=== PATIENT | female | born 1985 | race Two or more races ===

== ENCOUNTER 2021-12-06 09:31 | Outpatient (REF) | payer BC, SELFPAY ==
--- NOTE | 2021-12-06 | EMG_ITS ---
Bilateral median and ulnar motor and sensory studies were performed, bilateral radial and sensory studies were performed, and EMG study was performed. IMPRESSION: 1. Moderately severe chronic left ulnar neuropathy. 2. Mild right median neuropathy across carpal tunnel. 3. Mild right ulnar neuropathy across cubital tunnel. MD JEIMY Dumont/SUZIEL / [id number]
== END 2021-12-06 09:32 | disposition home or self-care (01) ==
LOC: HO.NEURO 09:31
PROVIDERS: PCP Internal Medicine; Visit Provider Internal Medicine
DX: G56.03 Carpal tunnel syndrome, bilateral upper limbs (principal)
CPT/HCPCS: 95886; 95911

== ENCOUNTER 2023-08-04 09:38 | Outpatient (AMB) | payer OTHER, SELFPAY ==
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
[2023-08-04 09:44] VITALS: BP 122/68; PULSE 72; BMI 27.6
== END 2023-08-04 10:26 | disposition home or self-care (01) ==
PROVIDERS: PCP Internal Medicine; Referring Provider Internal Medicine; Visit Provider Surgery
DX: S30.0XXA Contusion of lower back and pelvis, initial encounter (principal)
CPT/HCPCS: 99204

== ENCOUNTER → 2023-08-04 09:38 | Outpatient (BNVA) | payer BC, SELFPAY | PROVIDERS: PCP Internal Medicine; Referring Provider Internal Medicine; Visit Provider Surgery | DX: S30.0XXA Contusion of lower back and pelvis, initial encounter (principal) | CPT/HCPCS: 99202 ==

== ENCOUNTER 2023-09-08 09:46 | Outpatient (AMB) | payer BC, SELFPAY ==
[2023-09-08 09:56] VITALS: BP 140/90; PULSE 102; BMI 27.1
--- NOTE | 2023-09-08 09:56 | A.OFFVIS_ITS ---
Vital Signs 09/08/23 09:56 Height 5 ft 8 in Weight 178 lb BMI 27.1 BP 140/90 H Blood Pressure Location Rt brachial Position Sitting Pulse 102 H Intake Visit Reasons: hematoma evacuation Intake Note: Patient here for 1m f/u hematoma on Lt buttock. Reports slow improvement. Patient c/o: site on lt buttock feels like is turning into a large scar. Pain after standing for long periods of time specially at work. Solar Resource Assessor Required: Yes Solar Resource Assessor Name: Tiffany BREAUX Accompanied by: Self / Same As Patient Allergies No Known Allergies Allergy (Verified 09/08/23 09:58) HPI Comments Details: Patient presents for follow-up status post left buttock hematoma from work- related injury. The process has markedly decreased in size but is occasionally symptomatic colon to the patient with strenuous activities. PFSH Family History Mother Diabetes HTN (hypertension) Social History Current occupational status: employed Current occupation: rt hand / caseworker intake Physical Exam Vital Signs: Last Vital Signs Pulse 102 H 09/08/23 09:56 BP 140/90 H 09/08/23 09:56 BMI result Body Mass Index 27.1 Back/Spine/Pelvis Other: . Complete resolution of ecchymosis. No obvious hematoma palpated anymore.. Assessment & Plan Assessment & Plan (1) Traumatic hematoma of buttock: Code(s): S30.0XXA - Contusion of lower back and pelvis, initial encounter Category: Surgical Plan Patient was reassured that the process is self-resolving and can resume all her prior activities. Although possible, patient is highly unlikely to have any long-term sequelae results from the arrange hematoma process. All questions answered. Patient will follow-up p.r.n.. Coding Level of Care Code Est Pt Level 4 (42233) Diagnoses Traumatic hematoma of buttock S30.0XXA
== END 2023-09-08 10:19 | disposition home or self-care (01) ==
PROVIDERS: PCP Internal Medicine; Visit Provider Surgery
DX: S30.0XXA Contusion of lower back and pelvis, initial encounter (principal)
CPT/HCPCS: 99214

== ENCOUNTER → 2023-09-08 09:46 | Outpatient (BNVA) | payer OTHER, BC, SELFPAY | PROVIDERS: PCP Internal Medicine; Visit Provider Surgery | DX: S30.0XXD Contusion of lower back and pelvis, subsequent encounter (principal) | CPT/HCPCS: 99212 ==

== ENCOUNTER 2024-02-26 14:37 | Emergency (ER) | payer BC, SELFPAY ==
--- NOTE | ~2024-02-26 | XR_ITS ---
EXAMINATION: XR CHEST 2 VIEW CLINICAL INFORMATION: Pain COMPARISON: None TECHNIQUE: PA and lateral views of the chest obtained. FINDINGS: The lungs are clear. There are no pleural effusions. The cardiomediastinal silhouette is normal. XR/XR chest 2V IMPRESSION: No acute cardiopulmonary disease. Electronically signed by: David Bass MD 02/26/2024 04:00 PM EDT
[2024-02-26 14:56] VITALS: BP 123/84; PULSE 81; RESP 16; TEMP 36.1; O2SAT 99; BMI 25.1
--- NOTE | 2024-02-26 15:10 | ED_ITS ---
HPI - General Adult General Chief complaint: General Medical Stated complaint: Headache, fever, vomiting Time Seen by Provider: 02/26/24 17:01 Source: patient and crew caller Mode of arrival: ambulatory Limitations: language barrier History of Present Illness ED Provider: adrienne RIOS narrative: Patient is a 38-year-old Georgian-speaking female presenting to the emergency department with complaint of headache, chills, nausea, vomiting, diarrhea since yesterday. States that she felt fine yesterday morning and symptoms began while she is at work. States this morning felt as though symptoms were improved but when she returned to work symptoms began again. Has been unable to tolerate any fluids by mouth today. Denies any family members at home with similar symptoms. Does not attribute to any foods she ate prior to onset of symptoms. Denies any hematochezia, melena, hematemesis. Denies abdominal pain. MD complaint: nausea, vomiting, diarrhea Onset (ago): day(s) Treatments prior to arrival: none Related Data Home Medications ?Medication ?Instructions ?Recorded ?Confirmed albuterol sulfate 90 mcg/actuation inhalation 09/08/23 aerosol inhaler Previous Rx's ?Medication ?Instructions ?Recorded ondansetron 4 mg disintegrating 4 mg PO Q8H PRN nausea and 02/26/24 tablet vomiting #10 tabs Allergies Allergy/AdvReac Type Severity Reaction Status Date / Time No Known Allergies Allergy Verified 02/26/24 14:57 Review of Systems 2 Review of Systems: As per HPI. Yes all other systems are reviewed and are negative Constitutional: Constitutional: Reports as per HPI [facility] Family History Family History Mother Diabetes HTN (hypertension) Social History Social History Advance Directives: No Advance Directives Information Provided: No Current occupational status: employed Current occupation: rt hand / warehouse loader Physical Exam ED Vital Signs: Vital Signs - 24 hr 02/26/24 14:56 02/26/24 17:01 Temperature 97.0 F 97.8 F Pulse Rate 81 80 Respiratory Rate 16 16 Blood Pressure 123/84 133/86 Pulse Oximetry 99 100 Oxygen Delivery Method Room Air BMI result Body Mass Index 25.1 Vital signs have been reviewed and appear to be correct. Blood pressure normal. Heart rate normal. Respiratory rate normal. Temperature normal. Oxygen saturation normal. Const General: cooperative, healthy appearing and no acute distress Orientation/consciousness: oriented to person, oriented to place, oriented to time and patient oriented x3 Limitations: no limitations HENMT Head: Yes normocephalic and Yes atraumatic Ears: external ears normal General nose exam: Normal external nose present Face and sinus: Yes face symmetric Mouth: oropharynx normal and moist mucous membranes Throat: Yes uvula midline Eyes Pupils: Equal, round and reactive pupils present Neck Neck: Yes normal visual inspection and Yes supple Resp Effort & Inspection: normal respiratory effort and able to speak in complete sentences Auscultation: clear to auscultation bilaterally Cardio Rate: regular rate Rhythm: regular rhythm Heart sounds: S1 normal heart sound present and S2 normal heart sound present GI Palpation (GI): Soft to palpation and nontender Auscultation: normoactive bowel sounds General: Yes no CVA tenderness Back/Spine/Pelvis Back: no CVA tenderness Skin General skin exam: elasticity normal and turgor normal Neuro General: oriented to person, oriented to place, oriented to time, patient oriented x3, moves all extremities, no focal motor deficits and CN's II-XI intact bilaterally Cranial nerves: Yes Equal, round and reactive pupils present Cognition (Neuro): normal cognition Extrem General: Yes full ROM, Yes no pedal edema and Yes no calf tenderness Psych Mental Status: mental status grossly normal Affect: normal affect Thought process: Normal thought process present Course Course Course Narrative: RME, this is a rapid medical exam performed by Dipak Biggs please refer to primary provider for complete H&P- 38-year-old female presents for evaluation of nausea vomiting, weakness starting yesterday. She also complains of headache. Denies any fevers, chills. Plan for labs, viral swabs chest x-ray. Medications Administered Discontinued Medications Generic Name Dose Route Start Last Admin Trade Name Freq PRN Reason Stop Dose Admin Ondansetron HCl 4 mg 02/26/24 17:56 02/26/24 18:05 Ondansetron Odt 4 Mg Tab.Indu HOLLISU 02/26/24 17:57 4 mg ONCE ONE Administration Medical Decision Making Medical Decision Making MDM Narrative: Patient is a 38-year-old Georgian-speaking female presenting to the emergency department with complaint of headache, chills, nausea, vomiting, diarrhea since yesterday. On exam patient is awake, A+Ox3, VS WNL, afebrile, normal neurological exam without focal deficits, physical exam findings as above. Given reported symptoms and physical exam findings, initial differential includes viral illness, COVID, flu, gastroenteritis. Labs unremarkable. Viral serology negative. Urinalysis is without evidence of infection. X-ray chest notable for no evidence of pneumonia. My interpretation is in agreement with the radiologist's interpretation. Nausea improved with medication and patient able to tolerate PO fluids in the ED. Feel patient is stable for discharge home. Will send prescription for Zofran to the pharmacy. Return precautions discussed at bedside. Patient verbalized understanding of and agreement with plan. Differential Diagnosis Differential Diagnoses: The differential diagnosis associated with the presentation includes As per [facility]. Admission/Observation Consideration of admission/observation: Escalation of care including admission/observation considered Patient would have been admitted to the hospital had their work up had any findings where hospital admission was appropriate and their clinical presentation warranted hospital admission. Lab Data [facility] Lab Attestation statement: I reviewed the patient's lab results. as per [facility] 02/26/24 15:31 02/26/24 15:31 Labs: Lab Results 02/26/24 02/26/24 Range/Units 15:31 15:36 WBC 8.4 (4.8-10.8) X10*3/uL RBC 4.26 (4.20-5.50) X10*6/uL Hgb 12.4 (12.0-16.0) g/dl Hct 37.8 (37.0-47.0) % MCV 88.7 (80.0-98.0) fL MCH 29.1 (27.0-33.0) pg MCHC 32.8 (31.0-35.0) g/dl RDW 15.3 (11.0-16.0) % Plt Count 319 (160-400) X10*3/uL MPV 9.6 (9.4-12.3) fL Immature Gran % (Auto) 0.5 H (0.0-0.4) % Neut % (Auto) 67.9 (45-73) % Lymph % (Auto) 21.8 (20-40) % [place] % (Auto) 7.5 (2-11) % Eos % (Auto) 1.9 (0-4) % Baso % (Auto) 0.4 (0-2) % Lymph # (Auto) 1.8 (1.2-4.9) X10*3/uL [place] # (Auto) 0.6 (0.1-1.2) X10*3/uL Eos # (Auto) 0.2 (0.0-0.4) X10*3/uL Baso # (Auto) 0.0 (0.0-0.2) X10*3/uL Abs Immat Gran (auto) 0.04 H (0.00-0.03) X10*3/uL Absolute Neuts (auto) 5.7 (2.0-8.3) x10*3/uL Absolute Nucleated RBC 0.000 (0.0-0.012) X10*3/uL Nucleated RBC % (auto) 0.0 (0.0-0.2) /100WBC Sodium 139 (135-145) mmol/L Potassium 4.2 (3.3-5.1) mmol/L Chloride 106 (96-108) mmol/L Carbon Dioxide 27 (22-29) mmol/L Anion Gap 10 L (12-20) BUN 10 (9-16) mg/dL Creatinine 0.89 (0.5-1.4) mg/dL Estim Creat Clear Calc 86.4 Estimated GFR > 60 Random Glucose 115 (60-115) mg/dL Calcium 9.4 (8.4-10.2) mg/dL Total Bilirubin 0.4 (0.0-1.0) mg/dL AST 17 (5-31) U/L ALT 11 (0-31) U/L Alkaline Phosphatase 46 (39-117) U/L Total Protein 6.9 (6.5-8.0) g/dL Albumin 4.0 (3.5-5.0) g/dL Lipase 14 (8-78) U/L Beta HCG, Quant < 2 mIU/mL Urine Color Yellow Urine Appearance Turbid Urine pH 8.5 (5.0-9.0) Ur Specific [place] 1.020 (1.005-1.025) Urine Protein Negative (Neg-Trace) mg/dL Urine Glucose (UA) Negative (Negative) mg/dL Urine Ketones Negative (Negative) mg/dL Urine Blood Negative (Negative) Urine Nitrite Negative (Negative) Ur Leukocyte Esterase Small (1+) H (Negative) Urine RBC 0-2 (0-2) /HPF Urine WBC 0-5 (0-5) /HPF Ur Squamous Epith Cells 3-5 (0-2) /HPF Other Crystals Present Urine Bacteria Trace (None Seen) Hyaline Casts 0-2 (0-2) /LPF Influenza Type A (PCR) NEGATIVE (Negative) Influenza Type B (PCR) NEGATIVE (Negative) RSV RNA Qual (PCR) NEGATIVE (Negative) SARS-CoV-2 RNA (RT-PCR) NEGATIVE (Negative) Independent Interpretation I performed an independent interpretation of an: Plain X-Ray Interpretation: Chest x-rays without evidence of pneumonia Radiology Impression Discussion of test interpretation with radiology: I have reviewed the radiologist's reading. Radiologist Impression: XR/XR chest 2V IMPRESSION: No acute cardiopulmonary disease. External Record Review External record reviewed: Inpatient record, Office record and Outpatient record Prescription Management I considered prescription management with: Other Discharge Plan Discharge Clinical Impression: Nausea, vomiting, and diarrhea Patient Disposition: Home, Self-Care Instructions: Gastroenteritis (DC), Acute Nausea and Vomiting (ED), Acute Diarrhea (ED) Additional Instructions: You have been evaluated in the emergency department today for nausea, vomiting, and diarrhea. Your evaluation suggests that your symptoms are most likely due to a viral illness which will improve on it's own with rest and fluids. Remember to drink plenty of fluids at home. You are being prescribed ondansetron which you can use as per the prescription instructions for nausea. Please follow up with your primary care provider within two days. Return to the emergency department if you experience worsening or uncontrolled pain, inability to tolerate fluids by mouth, difficulty breathing, fevers 100.4? F or greater, recurrent vomiting, or any other concerning symptoms. Prescriptions: New ondansetron 4 mg tablet,disintegrating 4 mg PO Q8H PRN (Reason: nausea and vomiting) Qty: 10 0RF No Action albuterol sulfate 90 mcg/actuation HFA aerosol inhaler inhalation Stand Alone Forms: Work/School Release Print Language: Georgian
[2024-02-26 15:38] LABS: Basophils Percent Auto 0.4 % (0-2); Eosinophils Absolute Auto 0.2 X10*3/uL (0.0-0.4); Eosinophils Percent Auto 1.9 % (0-4); Hematocrit 37.8 % (37.0-47.0); Hemoglobin 12.4 g/dl (12.0-16.0); Imm Gran Abs Auto 0.04 X10*3/uL (0.00-0.03); Imm Gran Pct Auto 0.5 % (0.0-0.4); Lymphocytes Absolute Auto 1.8 X10*3/uL (1.2-4.9); Lymphocytes Percent Auto 21.8 % (20-40); MANUAL DIFF FLAG NO; Mean Corpuscular HGB Conc 32.8 g/dl (31.0-35.0); Mean Corpuscular Hemoglobin 29.1 pg (27.0-33.0); Mean Corpuscular Volume 88.7 fL (80.0-98.0); Mean Platelet Volume 9.6 fL (9.4-12.3); Monocytes Absolute Auto 0.6 X10*3/uL (0.1-1.2); Monocytes Percent Auto 7.5 % (2-11); Neutrophils Absolute Auto 5.7 x10*3/uL (2.0-8.3); Neutrophils Percent Auto 67.9 % (45-73); Platelet Count 319 X10*3/uL (160-400); Red Blood Count 4.26 X10*6/uL (4.20-5.50); Red Cell Distribution Width 15.3 % (11.0-16.0); White Blood Count 8.4 X10*3/uL (4.8-10.8)
[2024-02-26 15:54] LABS: Appearance Urine Turbid; Color Urine Yellow; Glucose Urine UA Negative (Negative); Leukocyte Esterase Urine Small (1+) (Negative); Nitrite Urine Negative (Negative); PH 8.5 (5.0-9.0); UMIC TRIGGER UACC YES; Urine Blood Negative (Negative); Urine Ketones Negative (Negative); Urine Protein Negative (Neg-Trace)
[2024-02-26 16:04] LABS: Bacteria Urine Trace (None Seen); Hyaline Casts Urine 0-2 /LPF (0-2); Other Crystals Urine Present; RBC Urine 0-2 /HPF (0-2); UACC Culture Trigger YES; WBC Urine 0-5 /HPF (0-5)
[2024-02-26 16:06] LABS: Alanine Aminotransferase 11 U/L (0-31); Alkaline Phosphatase 46 U/L (39-117); Anion Gap 10 (12-20); Aspartate Amino Transferase 17 U/L (5-31); Bilirubin Total 0.4 mg/dL (0.0-1.0); Blood Urea Nitrogen 10 mg/dL (9-16); Calcium 9.4 mg/dL (8.4-10.2); Carbon Dioxide 27 mmol/L (22-29); Chloride 106 mmol/L (96-108); Creatinine Clr Calc Pharmacy 86.4; Estimated Glomerular Filt Rate > 60; Glucose Random 115 mg/dL (60-115); Lipase 14 U/L (8-78); Potassium 4.2 mmol/L (3.3-5.1); Sodium 139 mmol/L (135-145); Total Protein 6.9 g/dL (6.5-8.0)
[2024-02-26 16:07] LABS: HCG Quantitative < 2 mIU/mL
[2024-02-26 16:27] LABS: Influenza A PCR NEGATIVE (Negative); Influenza B PCR NEGATIVE (Negative); Resp Syncy Virus RNA Qual PCR NEGATIVE (Negative); SARS COV2 PCR INHOUSE NEGATIVE (Negative)
[2024-02-26 17:01] VITALS: BP 133/86; PULSE 80; RESP 16; TEMP 36.6; O2SAT 100
[2024-02-26] MEDS: Ondansetron ODT 4 MG TAB.RAPDIS TRANSLINGU (18:05)
[2024-02-26 18:50] VITALS: BP 133/86; PULSE 80; RESP 16; TEMP 36.6; O2SAT 100
== END 2024-02-26 18:57 | disposition home or self-care (01) ==
PROVIDERS: Physician Assistant; Emergency Provider Emergency Medicine
DX: R51.9 Headache, unspecified (principal); R50.9 Fever, unspecified; R07.89 Other chest pain; R11.2 Nausea with vomiting, unspecified; R10.2 Pelvic and perineal pain; Z79.899 Other long term (current) drug therapy; Z03.818 Encounter for observation for suspected exposure to other biological agents ruled out
CPT/HCPCS: 0241U; 71046; 80053; 81001; 83690; 84702; 85025; 87086; 99283

== ENCOUNTER 2024-07-20 12:33 | Outpatient (AMB) | payer BC, SELFPAY ==
[2024-07-20 12:35] VITALS: BMI 25.1
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
== END 2024-07-20 13:43 | disposition home or self-care (01) ==
LOC: HO.HOS 12:34
PROVIDERS: Visit Provider Orthopaedic Surgery
DX: G56.01 Carpal tunnel syndrome, right upper limb (principal); G56.21 Lesion of ulnar nerve, right upper limb; S64.02XA Injury of ulnar nerve at wrist and hand level of left arm, initial encounter
CPT/HCPCS: 99214

== ENCOUNTER 2024-08-18 10:58 | Emergency (ER) | payer BC, SELFPAY ==
--- NOTE | ~2024-08-18 | XR_ITS ---
EXAMINATION: XR CHEST CLINICAL INFORMATION: CP, SOB COMPARISON: 02/26/2024. TECHNIQUE: 2 views of the chest were obtained. FINDINGS: The cardiac, hilar, and mediastinal contours are normal. The lungs are clear bilaterally. There is no pneumothorax or pleural effusion. There is no focal osseous or soft tissue abnormality. XR/XR chest 2V IMPRESSION: Normal chest. Electronically signed by: Tony Mazariegos MD 08/18/2024 12:06 PM EDT
[2024-08-18 11:03] VITALS: BP 124/81; PULSE 114; RESP 18; TEMP 37.7; O2SAT 98; BMI 26.2
--- NOTE | 2024-08-18 11:05 | ED_ITS ---
HPI - General Adult General Chief complaint: Upper Respiratory Symptoms Stated complaint: Trouble Breathing, Fever, Cough, Chest Pain Time Seen by Provider: 08/18/24 12:43 Source: patient and japanese interpreter (all interactions with his patient were facilitated with an [facility] healthcare interpreter.) Mode of arrival: ambulatory Limitations: language barrier (all interactions with his patient were facilitated with an [facility] healthcare interpreter.) History of Present Illness ED Provider: Kay Cassidy PA-C HPI narrative: Patient is a 39 year old assigned female at with no reported medical history presenting to the emergency department today with a fever, cough, chest pain with coughing, and a headache. Patient states that over the last day she has had a fever, cough, headache, and chest pain with coughing. Patient denies any dizziness, lightheadedness, abdominal pain, nausea, vomiting, chills, blurry vision, double vision, loss of vision, chest pain, difficulty breathing, shortness of breath, back pain, night sweats, pain with urination, increased urinary frequency, increased urinary urgency, blood in her urine or stool, syncope or a near syncopal episode, recent trauma or falls, bowel incontinence, bladder incontinence, or any other complaints at this time. Onset (ago): day(s) (1) Relieving factors: none Exacerbating factors: none Associated symptoms: chest pain (with coughing), cough and fever/chills Treatments prior to arrival: none Related Data Home Medications ?Medication ?Instructions ?Recorded ?Confirmed albuterol sulfate 90 mcg/actuation inhalation 09/08/23 aerosol inhaler Previous Rx's ?Medication ?Instructions ?Recorded ondansetron 4 mg disintegrating 4 mg PO Q8H PRN nausea and 02/26/24 tablet vomiting #10 tabs oseltamivir 75 mg capsule (Tamiflu) 75 mg PO DAILY 5 days #5 caps 08/18/24 Allergies Allergy/AdvReac Type Severity Reaction Status Date / Time No Known Allergies Allergy Verified 08/18/24 11:06 Review of Systems 2 Constitutional: Constitutional: Reports no additional constitutional complaints, Denies chills, Reports fever(s), Reports headache(s) and Denies night sweats Eyes: Eyes: Reports no additional eye complaints, Denies blurry vision, Denies change in vision, Denies diplopia, Denies eye discharge, Denies loss of vision and Denies eye pain ENT: Denies dizziness and Reports headache(s) Cardiovascular: Cardiovascular: Reports no additional cardiovascular complaints, Reports chest pain (with coughing), Denies lightheadedness, Denies Loss of Consciousness and Denies dyspnea Respiratory: Respiratory: Reports no additional respiratory complaints, Reports cough and Denies dyspnea Gastrointestinal: Gastrointestinal: Reports no additional gastrointestinal complaints, Denies abdominal pain, Denies melena, Denies hematochezia, Denies change in bowel habits and Denies change in stool character Genitourinary: Genitourinary: Denies hematuria, Denies urinary frequency, Denies dysuria, Denies urinary incontinence, Denies urinary hesitancy and Denies urinary urgency Musculoskeletal: Musculoskeletal: Reports no additional musculoskeletal complaints, Denies numbness and Denies tingling Neurologic: Denies dizziness, Reports headache(s), Denies loss of vision, Denies numbness and Denies tingling Psychiatric: Psychiatric: Reports no additional psychiatric complaints Endocrine: Endocrine: Reports no additional endocrine complaints Hematologic/Lymphatic: Hematologic/Lymphatic: Reports no additional hematologic/lymphatic complaints Allergic/Immunologic: Allergic/Immunologic: Reports no additional allergic/immunologic complaints PMFSH Past Medical History Attestation statement: The following information was validated with the patient. Source: old records reviewed and nursing notes reviewed Family History Family History Mother Diabetes HTN (hypertension) Social History Social History Advance Directives: No Advance Directives Information Provided: Yes Current occupational status: employed Current occupation: rt hand / warehouse delivery manager Physical Exam ED Vital Signs: Vital Signs - 24 hr 08/18/24 11:03 08/18/24 13:23 08/18/24 13:53 Temperature 99.9 F Pulse Rate 114 H 88 65 Respiratory Rate 18 22 H 16 Blood Pressure 124/81 107/60 Pulse Oximetry 98 95 Oxygen Delivery Method Room Air Room Air Non-Rebreather Mask 08/18/24 13:56 Temperature 0 F L Pulse Rate 65 Respiratory Rate 16 Blood Pressure 107/60 Pulse Oximetry 95 Oxygen Delivery Method Room Air Non-Rebreather Mask BMI result Body Mass Index 26.2 Const General: cooperative, no acute distress, alert and awake Nutritional Appearance: well nourished Orientation/consciousness: patient oriented x3 Limitations: language barrier (all interactions with [facility] japanese interpreter as noted above.) HENMT Head: Yes normal to inspection and Yes atraumatic Ears: hearing grossly normal bilaterally and external ears normal General nose exam: Normal external nose present, no nasal discharge noted and no epistaxis Face and sinus: Yes normal facial exam, No abrasion and No laceration Mouth: Normal oral and palatal mucosa present, no drooling and no muffled voice Eyes General: appearance normal, both eyes and all related structures Periorbital: periorbital findings normal Eyelids: Yes eyelids normal Conjunctivae: conjunctivae normal Pupils: Equal, round and reactive pupils present EOM: EOMs intact bilaterally Neck Neck: Yes normal visual inspection, Yes full ROM and Yes no lymphadenopathy Chest Chest palpation & inspection: normal inspection of the chest Resp Effort & Inspection: normal respiratory effort and able to speak in complete sentences Auscultation: wheezes scattered wheezes GI Inspection: Yes normal to inspection Neuro General: patient oriented x3, moves all extremities and CN's II-XI intact bilaterally Cranial nerves: Yes Equal, round and reactive pupils present Cognition (Neuro): normal cognition Extrem General: Yes normal to inspection, Yes full ROM and Yes capillary refill normal Psych Appearance: grossly normal Mental Status: mental status grossly normal Affect: normal affect Attitude: cooperative Thought process: Normal thought process present Thought content: Normal thought content present Insight: Good insight present (Psych) Course Course Course Narrative: This is an RME: Additional HPI, ROS, PE not included below will be deferred to primary provider. RME assessment and note performed by: Ami Stewart PA-C This is a 74[place]citizen [place] speaking female, hx of asthma, who presents to the ER with a complaint of cough and fevers since last night. Patient also endorsing nausea and vomiting. No sick contacts. Frequent dry cough heard on exam. Lungs with prolonged expiratory wheeze noted, more pronounced in the bilateral lung bases. She last took Tylenol at 3:00 a.m. this morning. Further ER evaluation needed. Patient tachycardic at 114bpm, speaking in full sentences. Appears to be under no acute respiratory distress. Temperature 99.9F orally. Plan: Tylenol, Zofran Labs, EKG, CXR, viral swabs. Further ER evaluation needed. Medications Administered Discontinued Medications Generic Name Dose Route Start Last Admin Trade Name Freq PRN Reason Stop Dose Admin Acetaminophen 975 mg 08/18/24 11:07 08/18/24 11:10 Acetaminophen 325 Mg Tablet PO 08/18/24 11:08 975 mg ONCE ONE Administration Albuterol Sulfate 5 mg/ 0 mg 08/18/24 13:14 08/18/24 13:19 Albuterol/Ipratropium 3 ml INHALE 08/18/24 13:15 1 each ONCE ONE Administration Methylprednisolone Sodium Succinate 60 mg 08/18/24 12:54 08/18/24 13:11 Methylprednisolone Sod Succ 125 Mg/2 Ml Vial IM 08/18/24 12:55 60 mg ONCE ONE Administration Ondansetron HCl 4 mg 08/18/24 11:08 08/18/24 11:10 Ondansetron Odt 4 Mg Tab.Rapdis TRANSLINGU 08/18/24 11:09 4 mg ONCE ONE Administration Medical Decision Making Medical Decision Making [facility] Narrative: Patient is a 39 year old assigned female at with no reported medical history presenting to the emergency department today with a fever, cough, chest pain with coughing, and a headache. Patient's physical exam was unremarkable. Patient's blood work was unremarkable. Patient's EKG showed sinus tachycardia but otherwise unremarkable. Patient's chest x-ray showed no acute process. Patient's influenza test was positive. I explained my physical exam findings as well as all test results to the patient. I answered all questions asked by the patient. Patient received IM solu-medrol and a breathing treatment while in the department which, upon re-evaluation, she stated it helped her symptoms significantly. I stressed the importance of the patient taking her medication as directed (either prescribed or as the over the counter packaging recommends). I stressed the importance of the patient following up with her primary care provider. I stressed the importance of the patient returning to the emergency department immediately if her symptoms were to worsen or if she were to develop any dizziness, shortness of breath, difficulty breathing, chest pain, blurry vision, loss of vision, nausea, vomiting, abdominal pain, fever, chills, back pain, or any other complaints. Patient verbalized agreement and understanding with this treatment plan and discharge. Differential Diagnosis Differential Diagnoses: The differential diagnosis associated with the presentation includes Cough Fever Headache Viral illness Influenza RSV COVID-19 Admission/Observation Consideration of admission/observation: Escalation of care including admission/observation considered Patient would have been admitted to the hospital had her work up had any findings where hospital admission was appropriate and her clinical presentation warranted hospital admission. Lab Data [facility] Lab Attestation statement: I reviewed the patient's lab results. My interpretation of these results are in the MDM Rationale portion of this note. 08/18/24 11:32 08/18/24 11:32 Labs: Lab Results 08/18/24 Range/Units 11:32 WBC 6.1 (4.8-10.8) X10*3/uL RBC 3.97 L (4.20-5.50) X10*6/uL Hgb 11.4 L (12.0-16.0) g/dl Hct 34.7 L (37.0-47.0) % MCV 87.4 (80.0-98.0) fL MCH 28.7 (27.0-33.0) pg MCHC 32.9 (31.0-35.0) g/dl RDW 15.7 (11.0-16.0) % Plt Count 241 (160-400) X10*3/uL MPV 9.8 (9.4-12.3) fL Immature Gran % (Auto) 0.3 (0.0-0.4) % Neut % (Auto) 77.4 H (45-73) % Lymph % (Auto) 11.5 L (20-40) % [place] % (Auto) 9.5 (2-11) % Eos % (Auto) 0.8 (0-4) % Baso % (Auto) 0.5 (0-2) % Lymph # (Auto) 0.7 L (1.2-4.9) X10*3/uL [place] # (Auto) 0.6 (0.1-1.2) X10*3/uL Eos # (Auto) 0.1 (0.0-0.4) X10*3/uL Baso # (Auto) 0.0 (0.0-0.2) X10*3/uL Abs Immat Gran (auto) 0.02 (0.00-0.03) X10*3/uL Absolute Neuts (auto) 4.7 (2.0-8.3) x10*3/uL Absolute Nucleated RBC 0.000 (0.0-0.012) X10*3/uL Nucleated RBC % (auto) 0.0 (0.0-0.2) /100WBC Sodium 142 (135-145) mmol/L Potassium 4.3 (3.3-5.1) mmol/L Chloride 111 H (96-108) mmol/L Carbon Dioxide 24 (22-29) mmol/L Anion Gap 11 L (12-20) BUN 8 L (9-16) mg/dL Creatinine 0.79 (0.5-1.4) mg/dL Estim Creat Clear Calc 105.0 Estimated GFR > 60 Random Glucose 99 (60-115) mg/dL Calcium 9.0 (8.4-10.2) mg/dL Total Bilirubin 0.2 (0.0-1.0) mg/dL AST 25 (5-31) U/L ALT 15 (0-31) U/L Alkaline Phosphatase 57 (39-117) U/L Troponin I High Sens < 2.7 (<3.5-17.0) ng/L Total Protein 6.8 (6.5-8.0) g/dL Albumin 4.0 (3.5-5.0) g/dL Beta HCG, Quant < 2 mIU/mL Influenza Type A (PCR) POSITIVE A (Negative) Influenza Type B (PCR) NEGATIVE (Negative) RSV RNA Qual (PCR) NEGATIVE (Negative) SARS-CoV-2 RNA (RT-PCR) NEGATIVE (Negative) S. pyogenes GrpA NERISSA Negative (Negative) Independent Interpretation I performed an independent interpretation of an: EKG and Plain X-Ray Interpretation: My interpretation is in agreement with the radiologist's impression of this imaging study. L EXAMINATION: XR CHEST CLINICAL INFORMATION: CP, SOB COMPARISON: 02/26/2024. TECHNIQUE: 2 views of the chest were obtained. FINDINGS: The cardiac, hilar, and mediastinal contours are normal. The lungs are clear bilaterally. There is no pneumothorax or pleural effusion. There is no focal osseous or soft tissue abnormality. XR/XR chest 2V IMPRESSION: Normal chest. Electronically signed by: Tony Mazariegos MD 08/18/2024 12:06 PM EDT Dictated By: Tony Mazariegos MD Signed By: Electronically signed by Tony Mazariegos MD 08/18/24 1206 I independently interpreted this EKG and am in agreement with the below findings: Vent. Rate: 104 BPM Atrial Rate: 104 BPM P-R Int: 130 ms QRS Dur: 80 ms QT Int: 330 ms P-R-T Axes: * 112 -23 degrees QTcB Int: 433 ms Sinus tachycardia Right axis deviation No previous ECGs available DD/ 1121 Radiology Impression Discussion of test interpretation with radiology: I have reviewed the radiologist's reading. Prescription Management I considered prescription management with: Antiviral (patient requested to be prescribed tamiflu) Discharge Plan Discharge Clinical Impression: Influenza Patient Disposition: Home, Self-Care Instructions: Influenza (DC) Additional Instructions: Follow up with your primary care provider. Return to the emergency department immediately if your symptoms worsen or if you develop any dizziness, shortness of breath, difficulty breathing, chest pain, blurry vision, loss of vision, nausea, vomiting, abdominal pain, fever, chills, back pain, or any other complaints. Kassi?seguimiento?con garcia m?dico de atenci?n primaria. Acuda inmediatamente al servicio de urgencias si hector s?ntomas empeoran o si presenta falta de aliento, dificultad para respirar, dolor tor?cico, mareos, aturdimiento, dolor de espalda, dolor abdominal, fiebre, escalofr?os o cualquier otro s?ntoma. Please see the information below about our Patient Portal. If you are not yet enrolled in the [facility] & [facility] Patient Portal, you will receive an enrollment email invitation following your visit to any [facility] care setting. You may also self-enroll in the Patient Portal by visiting our website: [email or web address] The following information is required to access the Patient Portal: - Your [facility] Medical Record Number - Your personal home email address (must match what is in your electronic medical record, Registration staff can assist with this) - Name - Date of Capabilities of the Patient Portal: - Message some providers - View upcoming appointments - Access your health summary, medical history, and visit history - View current conditions and allergies - View procedure and lab results - View your medications, including guidelines, side effects, and precautions - Complete pre-appointment questionnaires requested by your provider - Ready summary reports of your office visits and procedures To access the Patient Portal Mobile Karlie, follow these directions: - Search RUN in the Karlie Store or [employer] Store - Download the Karlie - Search for [facility] - Enter your login/password Portal del paciente Si usted no esta inscrito en el portal de pacientes de [facility] y [facility], recibira sandra invitacion de inscripcion despues de garcia visita al [facility] o al [facility] via correo electronico. Tambien puede inscribirse voluntariamente en el portal de pacientes visitando nuestra pagina web: [email or web address] La siguiente informacion sera requerida para acceder al portal: - Garcia jacinto de historia medica de [facility] - Garcia direccion de correo electronico personal - Nombre - Fecha de nacimiento Capacidades: Las siguientes capacidades estan disponibles en el portal de pacientes: - Enviar mensajes a algunos doctores - Verificar proximas citas - Acceso a garcia historial de magdalena, registro medico e historial de visitas - [place] las condiciones actuales y alergias lima procedimientos y resultados del laboratorio - [place] hector medicamentos, incluyendo las pautas - Efectos secundarios y precauciones - Completar o llenar formularios / cuestionarios de - Citas solicitadas por garcia doctor - Leer los resumenes de reportes medicos de hector visitas y procedimientos [place] acceder a la aplicacion movil: - [email or web address] [facility] en la Karlie Store o [employer] Play Store - Descargue la aplicacion - [facility] - Ingrese garcia nombre de usuario / Contrasena Prescriptions: New oseltamivir [Tamiflu] 75 mg capsule 75 mg PO DAILY 5 Days Qty: 5 0RF No Action ondansetron 4 mg tablet,disintegrating 4 mg PO Q8H PRN (Reason: nausea and vomiting) Qty: 10 0RF albuterol sulfate 90 mcg/actuation HFA aerosol inhaler inhalation Referrals: Naya Grewal MD [Primary Care Provider] - Stand Alone Forms: Work/School Release Interventions: ED Discharge Assessment Last Done: 08/18/24 13:56 Discharge Date/Time: 08/18/24 13:57 Print Language: Indonesian
--- NOTE | 2024-08-18 11:08 | ECG_ITS ---
Test Reason : UPPER RESPIRATORY Blood Pressure : */* mmHG Vent. Rate : 104 BPM Atrial Rate : 104 BPM P-R Int : 130 ms QRS Dur : 80 ms QT Int : 330 ms P-R-T Axes : * 112 -23 degrees QTcB Int : 433 ms Sinus tachycardia Right axis deviation Low voltage QRS Cannot rule out Inferior infarct , age undetermined Abnormal ECG No previous ECGs available Referred By: Ami Stewart Electronically Signed By: JUAN MANUEL HUYNH MD
[2024-08-18] MEDS: Ondansetron ODT 4 MG TAB.RAPDIS TRANSLINGU (11:10)
[2024-08-18] MEDS: Acetaminophen 325 MG TABLET 975 MG PO (11:10)
[2024-08-18 11:36] LABS: MANUAL DIFF FLAG NO
[2024-08-18 11:40] LABS: Basophils Percent Auto 0.5 % (0-2); Eosinophils Absolute Auto 0.1 X10*3/uL (0.0-0.4); Eosinophils Percent Auto 0.8 % (0-4); Hematocrit 34.7 % (37.0-47.0); Hemoglobin 11.4 g/dl (12.0-16.0); Imm Gran Abs Auto 0.02 X10*3/uL (0.00-0.03); Imm Gran Pct Auto 0.3 % (0.0-0.4); Lymphocytes Absolute Auto 0.7 X10*3/uL (1.2-4.9); Lymphocytes Percent Auto 11.5 % (20-40); Mean Corpuscular HGB Conc 32.9 g/dl (31.0-35.0); Mean Corpuscular Hemoglobin 28.7 pg (27.0-33.0); Mean Corpuscular Volume 87.4 fL (80.0-98.0); Mean Platelet Volume 9.8 fL (9.4-12.3); Monocytes Absolute Auto 0.6 X10*3/uL (0.1-1.2); Monocytes Percent Auto 9.5 % (2-11); Neutrophils Absolute Auto 4.7 x10*3/uL (2.0-8.3); Neutrophils Percent Auto 77.4 % (45-73); Platelet Count 241 X10*3/uL (160-400); Red Blood Count 3.97 X10*6/uL (4.20-5.50); Red Cell Distribution Width 15.7 % (11.0-16.0); White Blood Count 6.1 X10*3/uL (4.8-10.8)
[2024-08-18 11:46] LABS: IDNOW Serial# 58CA691E; Strep A Nucleic Acid Negative (Negative)
[2024-08-18 12:02] LABS: Troponin-I High Sensitivity < 2.7 ng/L (<3.5-17.0)
[2024-08-18 12:06] LABS: Alanine Aminotransferase 15 U/L (0-31); Alkaline Phosphatase 57 U/L (39-117); Anion Gap 11 (12-20); Aspartate Amino Transferase 25 U/L (5-31); Bilirubin Total 0.2 mg/dL (0.0-1.0); Blood Urea Nitrogen 8 mg/dL (9-16); Carbon Dioxide 24 mmol/L (22-29); Chloride 111 mmol/L (96-108); Estimated Glomerular Filt Rate > 60; Glucose Random 99 mg/dL (60-115); HCG Quantitative < 2 mIU/mL; Potassium 4.3 mmol/L (3.3-5.1); Sodium 142 mmol/L (135-145); Total Protein 6.8 g/dL (6.5-8.0)
[2024-08-18 12:20] LABS: Influenza A PCR POSITIVE (Negative); Influenza B PCR NEGATIVE (Negative); Resp Syncy Virus RNA Qual PCR NEGATIVE (Negative); SARS COV2 PCR INHOUSE NEGATIVE (Negative)
[2024-08-18] MEDS: methylPREDNISolone Sod Succ 125 MG/2 ML VIAL 60 MG IM (13:11)
[2024-08-18] MEDS: Albuterol Sulfate 5 MG, Albuterol/Iprat 2.5/0.5MG 3 ML 3 ML INHALE (13:19)
[2024-08-18 13:23] VITALS: PULSE 88; RESP 22; O2SAT 97
[2024-08-18 13:53] VITALS: BP 107/60; PULSE 65; RESP 16; O2SAT 95
[2024-08-18 13:56] VITALS: BP 107/60; PULSE 65; RESP 16; TEMP -17.7; TEMP 0; O2SAT 95
--- OUTSIDE RECORDS SUMMARY | 2024-08-18 15:10 | XMS_ITS | Clinical Summary ---
Author Organization 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 Role Phone Unavailable Primary Care Provider Unavailabl e Social History Tobacco Use Types Packs/Day Years Used Date Smoking Tobacco: Never Assessed Comments Unknown Sex and Gender Information Value Date Recorded Sex Assigned at Not on file Legal Sex Female 12:58 AM EST Gender Identity Not on file Sexual Orientation Not on file Plan of Treatment Health Maintenance Due Date Last Done Comments DTaP,Tdap,and Td Vaccines (1 - Tdap) 2004 Hepatitis B Vaccines (1 of 3 - 19+ 3-dose series) 2004 Cervical Cancer Screening: P ap Smear 2006 Depression Screening 04/07/2022 HIV Screening 04/07/2022 Hepatitis C Screening 04/07/2022 Social Influencers of Health Screening 04/07/2022 COVID-19 Vaccine (2023-2 5 season) 2024 Influenza Vaccine (Season Ended) 2025 HIB Vaccines Aged Out No longer eligi ble based on patient's age to complete this topic HPV Vaccines Aged Out No longer eligi ble based on patient's age to complete this topic Hepatitis A Vaccines Aged Out No long er eligible based on patient's age to complete this topic IPV Vaccines Aged Out No longer eligi ble based on patient's age to complete this topic MMR Vaccines Aged Out No longer eligi ble based on patient's age to complete this topic Meningococcal ACWY Vaccine Aged Out N o longer eligible based on patient's age to complete this topic Meningococcal B Vaccine Aged Out No l onger eligible based on patient's age to complete this topic Pneumococcal Vaccine: Pediat rics (0 to 5 Years) and At-Risk Patients (6 to 64 Years) Aged Out No longer eligible b ased on patient's age to complete this topic RSV Immunization Patients Un loulou 20 months Aged Out No longer eligible b ased on patient's age to complete this topic Varicella Vaccines Aged Out No longer eligible based on patient's age to complete this topic
== END 2024-08-18 13:57 | disposition home or self-care (01) ==
PROVIDERS: Physician Assistant Medical; Emergency Provider Emergency Medicine; PCP Internal Medicine
DX: J10.1 Influenza due to other identified influenza virus with other respiratory manifestations (principal); R50.9 Fever, unspecified; R05.9 Cough, unspecified; Z03.818 Encounter for observation for suspected exposure to other biological agents ruled out; Z79.899 Other long term (current) drug therapy
CPT/HCPCS: 0241U; 71046; 80053; 84484; 84702; 85025; 87651; 93005; 94640; 96372; 99284; J2919

== ENCOUNTER → 2024-08-18 11:08 | Outpatient (BNV) | payer BC, SELFPAY | PROVIDERS: Emergency Provider Emergency Medicine; PCP Internal Medicine; Visit Provider Internal Medicine Cardiovascular Disease | DX: R00.0 Tachycardia, unspecified (principal) | CPT/HCPCS: 93010 ==

== ENCOUNTER → 2024-08-18 11:08 | Outpatient (BNV) | payer BC, SELFPAY | PROVIDERS: Visit Provider Radiology Diagnostic Radiology | DX: R07.9 Chest pain, unspecified (principal); R06.02 Shortness of breath | CPT/HCPCS: 71046 ==

== ENCOUNTER 2024-09-08 10:18 | Outpatient (REF) | payer BC, SELFPAY ==
--- NOTE | 2024-09-08 10:24 | EMG_ITS ---
Chief complaint: Chronic right hand numbness, neck pain Reviewed previous EMG/NCS done by Dr. Rahman 2021, he reported right ulnar neuropathy at the elbow and median neuropathy at the wrist. Reason for referral: Evaluate for ulnar neuropathy Referred by: James MA Procedure done: Right upper extremity NCS/EMG Precautions and/or limitations: None The limb temperature was monitored continuously and remained between 32-36 degrees C during the performance of the NCS. Nerve Conduction Studies Anti Sensory Summary Table ?Stim Site NR Onset (ms) Norm Onset (ms) Peak (ms) Norm Peak (ms) O-P Amp (?V) Norm O-P Amp Site1 Site2 Delta-0 (ms) Dist (cm) Adalberto (m/s) Norm Adalberto (m/s) Right Median Anti Sensory (2nd Digit) Wrist ? 2.7 3.4 <3.6 41.4 >10 Wrist 2nd Digit 2.7 14.0 52 Right Ulnar Anti Sensory (5th Digit) Wrist ? 2.2 3.1 <3.7 40.2 >15.0 Wrist 5th Digit 2.2 14.0 64 Motor Summary Table ?Stim Site NR Onset (ms) Norm Onset (ms) O-P Amp (mV) Norm O-P Amp iAmp (mV) Amp (1st) (%) Site1 Site2 Delta-0 (ms) Dist (cm) Adalberto (m/s) Norm Adalberto (m/s) Right Median Motor (Abd Poll Brev) Wrist ? 3.8 <3.9 5.7 >4.5 6.5 100.0 Elbow Wrist 4.2 21.0 50 >45 Elbow ? 8.0 6.9 7.8 121.1 Right Ulnar Motor (Abd Dig Minimi) Wrist ? 2.7 <3.0 8.1 >5 10.0 100.0 B Elbow Wrist 3.2 20.0 63 >45 B Elbow ? 5.9 7.7 9.7 95.1 A Elbow B Elbow 1.4 10.0 71 >45 A Elbow ? 7.3 7.4 9.2 91.4 Comparison Summary Table ?Stim Site NR Peak (ms) Norm Peak (ms) P-T Amp (?V) Site1 Site2 Delta-P (ms) Norm Delta (ms) Right Median/Radial Dig I Comparison (Digit 1 - 10cm) Median ? 3.1 <2.9 54.1 Median Radial 0.1 Radial ? 3.0 <2.8 24.6 EMG ?Side Muscle Nerve Root Ins Act Fibs Psw Amp Dur Poly Recrt Int Pat Comment Right 1stDorInt Ulnar C8-T1 Incr 1+ 1+ Nml Nml 0 Nml Complete Right FlexCarRad Median C6-7 Nml Nml Nml Nml Nml 0 Nml Complete Right Biceps Musculocut C5-6 Nml Nml Nml Nml Nml 0 Nml Complete Right Triceps Radial C6-7-8 Nml Nml Nml Nml Nml 0 Nml Complete Right Deltoid Axillary C5-6 Nml Nml Nml Nml Nml 0 Nml Complete Right ABD Dig Min Ulnar C8-T1 Nml Nml Nml Nml Nml 0 Nml Complete Right FlexCarpiUln Ulnar C8,T1 Nml Nml Nml Nml Nml 0 Nml Complete Right ExtIndicis Radial (Post Int) C7-8 Nml Nml Nml Nml Nml 0 Nml Complete Paraspinal EMG ?Side Muscle Nerve Root Ins Act Fibs Psw Comment Right Cervical Upper Rami Nml Nml Nml Right Cervical Mid Rami Nml Nml Nml Right Cervical Lower Rami Nml Nml Nml FINDINGS: All motor and sensory nerves tested were within normal. Concentric needle EMG was performed in selected muscles of the right upper extremity and cervical paraspinals. Study revealed signs of electric abnormalities as shown in the table above. Right FDI showed increased insertional activity, small PSWs and fibrillations. No denervation seen on cervical paraspinals or other C8 innervated muscles. IMPRESSION: 1. This is an abnormal study. 2. There are electrodiagnostic findings suggestive of chronic right ulnar neuropathy. 3. There is no electrodiagnostic evidence for median neuropathy, brachial plexopathy, or cervical radiculopathy. Thank you for your kind referral. Areli Albright MD, [place] Board Certified, [place] Board of Physical Medicine and Rehabilitation (ABPMR) Board Certified, [place] Board of Electrodiagnostic Medicine (ABEM) [address] [id number] [facility]
== END 2024-09-08 10:19 | disposition home or self-care (01) ==
LOC: HO.NEURO 10:18
PROVIDERS: PCP Internal Medicine
DX: R20.0 Anesthesia of skin (principal); R20.2 Paresthesia of skin
CPT/HCPCS: 95886; 95909

== ENCOUNTER → 2024-09-08 10:24 | Outpatient (BNV) | payer BC, SELFPAY | PROVIDERS: PCP Internal Medicine; Visit Provider Physical Medicine & Rehabilitation | DX: G56.21 Lesion of ulnar nerve, right upper limb (principal) | CPT/HCPCS: 95886; 95909 ==

== ENCOUNTER 2024-10-01 16:06 | Outpatient (REF) | payer BC, SELFPAY ==
--- OUTSIDE RECORDS SUMMARY | 2024-10-01 16:09 | XMS_ITS | Clinical Summary ---
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
[2024-10-01 16:21] LABS: MANUAL DIFF FLAG NO
[2024-10-01 17:24] LABS: Basophils Absolute Auto 0.1 X10*3/uL (0.0-0.2); Basophils Percent Auto 0.8 % (0-2); Eosinophils Absolute Auto 0.6 X10*3/uL (0.0-0.4); Eosinophils Percent Auto 7.9 % (0-4); Hemoglobin 11.6 g/dl (12.0-16.0); Imm Gran Abs Auto 0.02 X10*3/uL (0.00-0.03); Imm Gran Pct Auto 0.3 % (0.0-0.4); Lymphocytes Absolute Auto 2.1 X10*3/uL (1.2-4.9); Lymphocytes Percent Auto 29.1 % (20-40); Mean Corpuscular HGB Conc 33.1 g/dl (31.0-35.0); Mean Corpuscular Hemoglobin 29.4 pg (27.0-33.0); Mean Corpuscular Volume 88.6 fL (80.0-98.0); Mean Platelet Volume 10.7 fL (9.4-12.3); Monocytes Absolute Auto 0.7 X10*3/uL (0.1-1.2); Monocytes Percent Auto 10.1 % (2-11); Neutrophils Absolute Auto 3.8 x10*3/uL (2.0-8.3); Neutrophils Percent Auto 51.8 % (45-73); Platelet Count 319 X10*3/uL (160-400); Red Blood Count 3.95 X10*6/uL (4.20-5.50); Red Cell Distribution Width 15.5 % (11.0-16.0); White Blood Count 7.3 X10*3/uL (4.8-10.8)
[2024-10-01 17:59] LABS: Alanine Aminotransferase 12 U/L (0-31); Albumin Level 4.1 g/dL (3.5-5.0); Alkaline Phosphatase 50 U/L (39-117); Anion Gap 10 (12-20); Aspartate Amino Transferase 20 U/L (5-31); Bilirubin Total 0.5 mg/dL (0.0-1.0); Blood Urea Nitrogen 10 mg/dL (9-16); Carbon Dioxide 25 mmol/L (22-29); Chloride 111 mmol/L (96-108); Estimated Glomerular Filt Rate > 60; Glucose Random 74 mg/dL (60-115); Potassium 4.9 mmol/L (3.3-5.1); Sodium 141 mmol/L (135-145); Total Protein 7.2 g/dL (6.5-8.0)
[2024-10-01 18:16] LABS: Thyroid Stimulating Hormone 1.74 uIU/mL (0.32-4.0)
[2024-10-02 03:44] LABS: CT PCR NOT DETECTED (Not Detect.); NG PCR NOT DETECTED (Not Detect.)
== END 2024-10-01 16:07 | disposition home or self-care (01) ==
LOC: HO.LAB 16:06
PROVIDERS: PCP Internal Medicine; Visit Provider Internal Medicine
DX: Z00.00 Encounter for general adult medical examination without abnormal findings (principal); J45.909 Unspecified asthma, uncomplicated; K59.00 Constipation, unspecified; K64.5 Perianal venous thrombosis; Z12.4 Encounter for screening for malignant neoplasm of cervix
CPT/HCPCS: 80053; 84443; 85025; 87491; 87591

== ENCOUNTER 2024-11-16 13:37 | Outpatient (AMB) | payer BC, SELFPAY ==
[2024-11-16 14:23] VITALS: BMI 26.1
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
--- OUTSIDE RECORDS SUMMARY | 2024-11-16 14:58 | XMS_ITS | Clinical Summary ---
Author Organization [facility] ity Address [address] [place] [address] Care Team Providers Care Coupon Redemption Clerk Name Role Phone Unavailable Primary Care Provider [...] Influencers of Health Screening 04/07/2022 COVID-19 Vaccine ( - 2023-2 5 season) 2024 Influenza Vaccine (#1) 2025 HIB Vaccines Aged Out No longer [...] 5 Years) and At-Risk Patients (6 to 49 Years) Aged Out No longer eligible b ased on patient's age to complete this topic RSV Immunization Patients Un loulou 20 months Aged Out No longer eligible b ased on patient's age to complete this topic Varicella Vaccines Aged Out No longer eligible based on patient's age to complete this topic
== END 2024-11-16 14:55 | disposition home or self-care (01) ==
LOC: HO.HOS 13:38
PROVIDERS: PCP Internal Medicine; Visit Provider Orthopaedic Surgery
DX: G56.21 Lesion of ulnar nerve, right upper limb (principal); G56.01 Carpal tunnel syndrome, right upper limb; S64.02XA Injury of ulnar nerve at wrist and hand level of left arm, initial encounter
CPT/HCPCS: 99214

== ENCOUNTER 2025-01-05 11:12 | Outpatient (AMB) | payer BC, SELFPAY ==
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
[2025-01-05 11:20] VITALS: BP 124/78; PULSE 101; O2SAT 98; BMI 25.8
--- OUTSIDE RECORDS SUMMARY | 2025-01-05 13:45 | XMS_ITS | Clinical Summary ---
Author Organization [facility] ity Address [address] [place] [address] Care Team Providers Care Movie Writer Name Role Phone Unavailable Primary Care Provider [...] 04/07/2022 Social Influencers of Health Screening 04/07/2022 Depression Screening 05/05/2024 COVID-19 Vaccine (2023-2 5 season) 2025 Influenza Vaccine (#1) 2025 HIB Vaccines Aged [...]
== END 2025-01-05 11:47 | disposition home or self-care (01) ==
LOC: HO.HOS 11:13
PROVIDERS: PCP Internal Medicine
DX: G56.21 Lesion of ulnar nerve, right upper limb (principal); G56.01 Carpal tunnel syndrome, right upper limb; S64.02XA Injury of ulnar nerve at wrist and hand level of left arm, initial encounter
CPT/HCPCS: 99024

== ENCOUNTER 2025-01-13 05:39 | Day surgery (SDC) | payer BC, SELFPAY ==
--- OUTSIDE RECORDS SUMMARY | 2024-11-30 14:36 | XMS_ITS | Clinical Summary ---
Author Organization [facility] ity Address [address] [place] [address] Care Team Providers Care Director Of Premium Seat Sales Name Role Phone Unavailable Primary Care Provider [...] Cervical Cancer Screening: P ap Smear 2006 HIV Screening 04/07/2022 Hepatitis C Screening 04/07/2022 Social Influencers of Health Screening 04/07/2022 COVID-19 Vaccine ( - 2023-2 5 season) 2024 Depression Screening 05/05/2024 Influenza Vaccine (#1) 2025 HIB Vaccines Aged [...]
[2025-01-11 07:49] VITALS: BMI 25.8
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
[2025-01-13] VITALS (8 sets, daily range): BP systolic 82–122; BP diastolic 40–80; PULSE 73–95; RESP 10–16; TEMP 36.1–36.8; O2SAT 98–100; BMI 27.3
[2025-01-13] MEDS: Lactated Ringers 1,000 ML 100 ML IVCONT (06:32)
[2025-01-13 07:17] LABS: UPreg QC Valid YES
--- NOTE | 2025-01-13 07:34 | MHC.SHP ---
Pre-Procedural Eval Section A - 24 Hr Update-Section A only Date of Service: 01/13/25 The patient is an INPATIENT: No Changes since office visit: No Cold of Flu in the past 2 weeks, No New Medical Problems, No Changes in Medication and No Patient answered all questions The patient has been examined within 24 hours of the surgical procedure. The History & Physical has been completed within 30 days and I have reviewed it.: Yes Section B - Complete if H&P > 30 days Chief Complaint: Lesion of ulnar nerve, right upper limb Allergies: Allergies Allergy/AdvReac Type Severity Reaction Status Date / Time No Known Allergies Allergy Verified 01/05/25 11:25 Plan I have reviewed the history and physical and performed a pertinent physical examination on my patient. No changes have occurred unless specified. Time Spent With Patient Time: Total time managing care of this patient today ____ minutes.
--- NOTE | 2025-01-13 07:34 | W.PM.OPN ---
Operative Note Operative Note Date of Service: 01/13/25 Narrative: Operative Note Narrative: Preop diagnosis: 1. Right Cubital tunnel syndrome Postop diagnosis: Same Procedure: 1. Right Cubital Tunnel Release Surgeon: Juana Garcia MD Configuration Engineer: James MA Anesthesia: General Anesthesia Findings: Thickening and fibrosis about the ulnar nerve at the cubital tunnel Implants: none Tourniquet time: 18 minutes EBL: 5.0 ml Specimen: none Drains: None Complications: None Disposition: Brought to the recovery room in stable condition Plan: Follow-up in 10-14 days for wound check, and suture removal Indications: The patient is 39 years old with right cubital tunnel syndrome . The risks and benefits of operative treatment, including but not limited to risk of damage to blood vessels, nerves, tendons, infection, recurrence, persistent pain or numbness, incomplete resolution of preoperative symptoms, or need for further surgery were discussed with the patient and they wished to proceed with surgery. Procedure: Once consent was obtained patient was brought back to the operating suite and placed in the operating table in a supine position. Perioperative antibiotics and anesthesia was administered by the anesthesia team. The limb was prepped and draped in a standard surgical fashion, and a sterile tourniquet applied to the proximal aspect of the right upper extremity. The limb was elevated exsanguinated with Esmarch bandage and the tourniquet inflated to 250 mm of mercury for a total tourniquet time of 18 minutes. A 6 cm gently curved but longitudinally oriented incision was made centered over the cubital tunnel of the right upper extremity. Incision was made through the skin to the subcutaneous tissues using a # 15 Blade. I then dissected down to the level of the medial epicondyle and the cubital tunnel using tenotomy scissors. Care was taken to protect the medial antebrachial cutaneous nerve. The ulnar nerve was identified just posterior to the medial intermuscular septum. The ulnar nerve was released in a proximal to distal direction using tenotomy in iris scissors while directly visualizing and protecting the ulnar nerve. Thickening and fibrosis was appreciated about the ulnar nerve as it passed through the cubital tunnel. The ulnar nerve was assessed as I passed the elbow through full flexion and extension and was found to remain stable within its groove. At this point the tourniquet was deflated and hemostasis obtained with a brief period of local pressure and bipolar electrocautery. The wound was copiously irrigated with normal saline. The subcutaneous layer was closed with 4-0 Vicryl suture, and the skin edges were reapproximated a running 4-0 Monocryl in a subcuticular closure. Steri-Strips and Mastisol were also applied. The wound was infiltrated with some 1% lidocaine with epinephrine for postop pain control and sterile dressings were applied. The patient appears to have tolerated the procedure well and with no complications. All digits were well vascularized at the conclusion of the case.
== END 2025-01-13 10:12 | disposition home or self-care (01) ==
PROVIDERS: Nurse Practitioner; PCP Internal Medicine; Visit Provider Orthopaedic Surgery
PROC: (CPT 64718; principal; 2025-01-13 07:30)
DX: G56.21 Lesion of ulnar nerve, right upper limb (principal); R20.0 Anesthesia of skin; R20.2 Paresthesia of skin
CPT/HCPCS: 64718; 81025; J0131; J0690; J1100; J2003; J2004; J2250; J2405; J2704; J3010

== ENCOUNTER → 2025-01-13 05:39 | Outpatient (BNV) | payer BC, SELFPAY | PROVIDERS: PCP Internal Medicine; Visit Provider Orthopaedic Surgery | DX: G56.21 Lesion of ulnar nerve, right upper limb (principal) | CPT/HCPCS: 64718 ==

== ENCOUNTER 2025-01-26 10:51 | Outpatient (AMB) | payer BC, SELFPAY ==
--- NOTE | 2025-01-26 11:03 | A.OFFVIS_ITS ---
Vital Signs 01/26/25 11:04 Height 5 ft 8 in Weight 178 lb BMI 27.1 Handedness Right Intake Visit Reasons: PO RT cubital tunnel 01/13/25 AR Intake Note: Dian is a 39 year old right hand dominant woman who presents today for a post operative visit status post undergoing a right cubital release, DOS: 01/13/[address] Juana Garcia. Today she states she has not been able to notice just yet if this procedure resolved her symptom. Expresses mild tingling that still comes and going in the tips of her right hand 3rd, 4th and 5th digits. Sutures removed today in office. Dressmaker Helper Required: Yes Dressmaker Helper Language: Technical Designer Services: Dressmaker Helper Present (ipad) Dressmaker Helper Name: [id number] Allergies No Known Allergies Allergy (Verified 01/26/25 11:12) HPI HPI PO RT cubital tunnel 01/13/25 AR: Details: Dian is a 39 year old right hand dominant woman who presents today for a post operative visit status post undergoing a right cubital release, DOS: 01/13/[address] Juana Garcia. Today she states she has not been able to notice just yet if this procedure resolved her symptom. Expresses mild tingling that still comes and going in the tips of her right hand 3rd, 4th and 5th digits. Sutures removed today in office. [facility] Surgical History (Updated 01/26/25 @ 11:04 by HENOK Arenas) S/P cubital tunnel release (~01/13/25) Family History Mother Diabetes HTN (hypertension) Social History Patient Tobacco Use Status: Never used Tobacco Current occupational status: employed Current occupation: rt hand / warehouse inventory clerk Review of Systems Const All systems reviewed & are unremarkable except as noted in HPI and below Physical Exam Vital Signs: BMI result Body Mass Index 27.1 Extrem Other: Evaluation of Right Upper Extremity: The patient is alert, oriented, and in no acute distress Neuro: numbness ulnar nerve distribution. Normal sensation in the median nerve distribution No thenar or intrinsic wasting Good APB muscle belly firing and good finger cross Vascular: Cap refill brisk ROM: Can bring fingers closed to a fist and back out to full extension. No locking or catching No claw deformity on the right Well approximated and well healing incision sites noted on right elbow No evidence of infection Assessment & Plan Assessment & Plan (1) Cubital tunnel syndrome on right: Code(s): G56.21 - Lesion of ulnar nerve, right upper limb Category: Medical Plan 1. Status post right cubital tunnel release DOS 01/13/2025 Patient appears to be recovering fairly well postoperatively Patient is educated about the typical recovery course Sutures removed, Steri-Strips applied without issue No underwater times one-week, 2 lb weight limit x2 weeks Follow-up as needed with any acute concerns Coding Level of Care Code Global (71042) Diagnoses Cubital tunnel syndrome on right G56.21
[2025-01-26 11:04] VITALS: BMI 27.1
--- OUTSIDE RECORDS SUMMARY | 2025-01-26 13:56 | XMS_ITS | Clinical Summary ---
Author Organization [facility] ity Address [address] [place] [address] Care Team Providers Care Vegetable Tier Name Role Phone Unavailable Primary Care Provider [...]
== END 2025-01-26 11:34 | disposition home or self-care (01) ==
LOC: HO.HOS 10:52
PROVIDERS: PCP Internal Medicine
DX: G56.21 Lesion of ulnar nerve, right upper limb (principal)
CPT/HCPCS: 99024

== ENCOUNTER 2025-02-15 17:49 | Emergency (ER) | payer BC, SELFPAY ==
[2025-02-15 17:57] VITALS: BP 147/87; PULSE 99; RESP 18; TEMP 36.6; O2SAT 100; BMI 25.8
--- NOTE | 2025-02-15 17:58 | ED.GENADULT ---
HPI - General Adult General Chief complaint: General Medical Stated complaint: ?Allergic reaction, lip swelling Time Seen by Provider: 02/15/25 18:44 Source: patient, RN notes reviewed and old records reviewed Mode of arrival: ambulatory Limitations: no limitations History of Present Illness ED Provider: Floresita HPI narrative: Patient is a 39 year old female presenting to the ED with complaint of right lower lip swelling. States she had pulled a small piece of dried skin off her lip, then her dog licked her and she developed swelling to her lip. Did not take any medications prior to arrival. Denies shortness of breath or tongue swelling. complaint: lip swelling Related Data Home Medications ?Medication ?Instructions ?Recorded ?Confirmed albuterol sulfate 90 mcg/actuation inhalation 09/08/23 aerosol inhaler fluticasone 250 mcg-salmeterol 50 1 ea inhalation BID 01/26/25 mcg/dose blistr powdr for inhalation (Wixela Inhub) Previous Rx's ?Medication ?Instructions ?Recorded amoxicillin 875 mg-potassium 1 tab PO BID #10 tabs 02/15/25 clavulanate 125 mg tablet Allergies Allergy/AdvReac Type Severity Reaction Status Date / Time No Known Allergies Allergy Verified 02/15/25 18:00 Review of Systems Review of Systems: as per hpi Yes all other systems are reviewed and are negative Constitutional: Constitutional: Reports as per HPI [facility] Past Medical History Surgical History (Updated 01/26/25 @ 11:04 by HENOK Arenas) S/P cubital tunnel release (~01/13/25) Family History Family History Mother Diabetes HTN (hypertension) Social History Social History Patient Tobacco Use Status: Never used Tobacco Advance Directives: No Advance Directives Information Provided: No Do you have a plan to hurt others: No Plan Current occupational status: employed Current occupation: rt hand / warehouse laborer Physical Exam ED Vital Signs: Vital Signs - 24 hr 02/15/25 17:57 02/15/25 19:01 Temperature 98 F Pulse Rate 99 76 Respiratory Rate 18 16 Blood Pressure 147/87 H 127/83 Pulse Oximetry 100 99 Oxygen Delivery Method Room Air Room Air BMI result Body Mass Index 25.8 Vital signs have been reviewed and appear to be correct. Blood pressure normal. Heart rate normal. Respiratory rate normal. Temperature normal. Oxygen saturation normal. Const General: cooperative, healthy appearing and no acute distress Orientation/consciousness: oriented to person, oriented to place, oriented to time and patient oriented x3 Limitations: no limitations HENVA Head: Yes normocephalic and Yes atraumatic Ears: external ears normal General nose exam: Normal external nose present Face and sinus: Yes face symmetric Mouth: tongue normal, oropharynx normal, moist mucous membranes, no audible dysphonia, no drooling, lip abnormal right lower swelling (erythema) and no trismus Throat: Yes uvula midline and No uvular edema Eyes Pupils: Equal, round and reactive pupils present Neck Neck: Yes normal visual inspection and Yes supple Resp Effort & Inspection: normal respiratory effort and able to speak in complete sentences Auscultation: clear to auscultation bilaterally Cardio Rate: regular rate Rhythm: regular rhythm Heart sounds: S1 normal heart sound present and S2 normal heart sound present GI Palpation (GI): Soft to palpation and nontender Auscultation: normoactive bowel sounds General: Yes no CVA tenderness Back/Spine/Pelvis Back: no CVA tenderness Skin General skin exam: elasticity normal and turgor normal Neuro General: oriented to person, oriented to place, oriented to time, patient oriented x3, moves all extremities, no focal motor deficits and CN's II-XI intact bilaterally Cranial nerves: Yes Equal, round and reactive pupils present Cognition (Neuro): normal cognition Extrem General: Yes full ROM, Yes no pedal edema and Yes no calf tenderness Psych Mental Status: mental status grossly normal Affect: normal affect Thought process: Normal thought process present Course Course Course Narrative: This is a rapid medical exam performed by Maggie Canas NP: Additional HPI, ROS, PE not included below will be deferred to primary provider. Patient is a 39y/o F presenting to the ED with complaint of right lower lip swelling. States she had pulled a small piece of dried skin off her lip, then her dog licked her and she developed swelling to her lip. 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 Plan: meds ordered Medications Administered Discontinued Medications Generic Name Dose Route Start Last Admin Trade Name Freq PRN Reason Stop Dose Admin Famotidine 20 mg 02/15/25 17:59 02/15/25 18:47 Famotidine 20 Mg Tablet PO 02/15/25 18:00 20 mg ONCE ONE Administration Loratadine 10 mg 02/15/25 17:59 02/15/25 18:47 Loratadine 10 Mg Tablet PO 02/15/25 18:00 10 mg ONCE ONE Administration Prednisone 40 mg 02/15/25 17:59 02/15/25 18:47 Prednisone 20 Mg Tablet PO 02/15/25 18:00 40 mg ONCE ONE Administration Medical Decision Making Medical Decision Making [facility] Narrative: Patient is a 39 year old female presenting to the ED with complaint of right lower lip swelling. On exam patient is awake, A+Ox3, VS WNL, afebrile, normal neurological exam without focal deficits, physical exam findings as above. Given reported symptoms and physical exam findings, initial differential includes but is not limited to localized allergic reaction to dog saliva, infection. Unlikely angioedema. Patient medicated with loratadine, prednisone and famotidine with improvement in symptoms. Will discharge on a course of augmentin to prophylactically. Advised patient that she can continue to take loratadine or cetirizine at home for swelling. Return precautions discussed. Patient verbalized understanding of and agreement with plan. Differential Diagnosis Differential Diagnoses: The differential diagnosis associated with the presentation includes as per [facility] Admission/Observation Consideration of admission/observation: Escalation of care including admission/observation considered Patient would have been admitted to the hospital and transferred to appropriate facility had their clinical presentation warranted hospital admission. External Record Review External record reviewed: Inpatient record, Office record and Outpatient record Prescription Management I considered prescription management with: Antibiotic Discharge Plan Discharge Clinical Impression: Allergic reaction Patient Disposition: Home, Self-Care Instructions: General Allergic Reaction (ED) Additional Instructions: You were evaluated in the emergency department today for an allergic reaction. You were given medications to improve your symptoms. You have been observed in the emergency department and you are stable for discharge at this time. You can take Benadryl and Pepcid, which are available [id number], to help control your symptoms at home. You are being treated with a course of antibiotics to prevent infection. Please schedule an appointment with your primary care physician for follow-up. Return to the emergency department if you experience rashes, difficulty breathing or swallowing, increased lip/mouth/tongue swelling, vomiting, or for any other concerning symptoms. Prescriptions: New amoxicillin-pot clavulanate 875-125 mg tablet 1 tab PO BID Qty: 10 0RF No Action albuterol sulfate 90 mcg/actuation HFA aerosol inhaler inhalation fluticasone propion-salmeterol [Wixela Inhub] 250-50 mcg/dose blister with device 1 ea inhalation BID Print Language: Grenadian
[2025-02-15 19:01] VITALS: BP 127/83; PULSE 76; RESP 16; O2SAT 99
[2025-02-15 19:47] VITALS: BP 127/83; PULSE 76; RESP 16; TEMP -17.7; TEMP 0; O2SAT 99
== END 2025-02-15 19:48 | disposition home or self-care (01) ==
PROVIDERS: Emergency Provider Emergency Medicine Emergency Medical Services; PCP Internal Medicine
DX: T78.40XA Allergy, unspecified, initial encounter (principal); X58.XXXA Exposure to other specified factors, initial encounter; R22.9 Localized swelling, mass and lump, unspecified
CPT/HCPCS: 99282; 99283